=== PATIENT | male | born 1990 | race Caucasian/White ===

== ENCOUNTER 2025-09-26 09:38 | Emergency (ER) | payer OTHER, SELFPAY ==
[2025-09-26 09:43] VITALS: BP 145/87; PULSE 71; TEMP 36.6; O2SAT 97; BMI 25.0
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
[2025-09-26 10:31] LABS: Hematocrit 43.2 % (36.0-48.0); Hemoglobin 14.9 g/dL (12.0-16.0); Immature Granulocytes Abs Auto 0.16 10^3/uL (0.00-0.03); Immature Granulocytes Pct Auto 1.3 % (0.0-0.5); Lymphocytes Absolute Auto 2.2 10^3/uL (1.2-3.8); Mean Corpuscular HGB Conc 34.5 g/dL (29.9-35.2); Mean Corpuscular Hemoglobin 32.0 pg (26.7-34.0); Mean Corpuscular Volume 92.9 fL (81.0-99.0); Platelet Count 331 10^3/uL (150-450); Red Blood Count 4.65 10^6/uL (4.20-5.40); White Blood Count 12.5 10^3/uL (4.0-11.0)
[2025-09-26] MEDS: TETRACAINE HCL 0.5% OP SOL 80 DROP/4 ML BOTTLE OP (10:40)
[2025-09-26] MEDS: FLUORESCEIN SODIUM 1 MG STRIP OP (10:40)
[2025-09-26 11:04] LABS: Anion Gap 14.3; Blood Urea Nitrogen 22.0 mg/dL (7.0-18.0); Calcium 9.5 mg/dL (8.5-10.1); Carbon Dioxide 28.6 mmol/L (21.0-32.0); Chloride 102 mmol/L (98-107); Estimated GFR (African America >60 (>=60 mL/min/1.73m^2); Estimated GFR (Non-African Ame 53 (>=60 mL/min/1.73m^2); Glucose 134 mg/dL (74-106); Potassium 3.9 mmol/L (3.5-5.1); Sodium 141 mmol/L (136-145)
== END 2025-09-26 10:51 | disposition home or self-care (01) ==
PROVIDERS: Emergency Provider Emergency Medicine
DX: B00.9 Herpesviral infection, unspecified (principal)
CPT/HCPCS: 36415; 80048; 85025; 99283